=== PATIENT | male | born 1970 | race Caucasian/White ===

== ENCOUNTER 2019-09-15 06:42 | Emergency (ER) | payer OTHER ==
[~2019-09-15] VITALS: Ht 170.2 cm; Wt 70.3 kg
[2019-09-15 06:45] VITALS: BP_SYST 146
[2019-09-15 07:20] VITALS: BP_SYST 146
== END 2019-09-15 07:20 | disposition home or self-care (01) ==
LOC: SED 06:42
DX: B02.8 Zoster with other complications (principal); I10 Essential (primary) hypertension
CPT/HCPCS: 99283